=== PATIENT | female | born 1945 | race Caucasian/White ===

== ENCOUNTER 2018-11-15 10:36 | Day surgery (SDC) | payer OTHER, BC ==
[2018-11-14 10:51] VITALS: BMI 30.4
[2018-11-15] MEDS ORDERED: CLINDAMYCIN 900 MG PREMIX IVPB 900 MG/50 ML BAG IVPB ONE (11:29)
[2018-11-15] MEDS ORDERED: BUPIVACAINE HCL/PF 0.5% (5MG/ML) 10 ML VIAL ONE (13:20)
[2018-11-15] MEDS ORDERED: MIDAZOLAM HCL 2 MG/2 ML SINGLE DOSE VIAL ONE (13:22)
[2018-11-15] MEDS ORDERED: PROPOFOL 20 ML ONE (13:22)
[2018-11-15] MEDS ORDERED: SUCCINYLCHOLINE CHLORIDE 200 MG/10 ML VIAL ONE (13:22)
[2018-11-15] MEDS ORDERED: ceFAZolin SODIUM 1 GM VIAL IVPB ONE (13:42)
[2018-11-15] MEDS ORDERED: DEXAMETHASONE SOD PHOSPHATE 4 MG/1 ML VIAL ONE (13:56)
[2018-11-15] MEDS ORDERED: ceFAZolin SODIUM 1 GM VIAL ONE (13:56)
[2018-11-15] MEDS ORDERED: ONDANSETRON 4 MG/2 ML VIAL IVPUSH PRN (14:25)
[2018-11-15] MEDS ORDERED: ACETAMINOPHEN 325 MG TABLET (FP) PO SCH (14:30)
[2018-11-15] MEDS ORDERED: LACTATED RINGERS SOLUTION 1,000 ML IV SCH (14:30)
[2018-11-15] MEDS ORDERED: LIDOCAINE 1%/EPI 1:100000 (20 ML MULTI DOSE VIAL) IJ ONE (15:37)
--- NOTE | 2018-11-15 16:51 | OP ---
Operative Note - Note: Operative Date: 11/15/18 Pre-Operative Diagnosis: Uterine procidentia, pelvic pain, Grade 3 cystocele Operation: Vaginal hysterectomy, resection and repair of enterocele, vaginal vault suspension with McCal/Harmon suspension, anterior colporrhaphy with cystocele repair and jeanette plication. Findings: as dictated Post-Operative Diagnosis: Same as Pre-op Surgeon: German Grande Fishing Worker: Oumou Rizo Anesthesiologist/SALT WASHER: Amanda Esteban Anesthesia: Spinal Specimens Removed: Uterus, cervix, enterocele sac, cystocele sac Estimated Blood Loss (mls): 30 (ml) Drains, Volume Out (mls): 250 (ml clear urine) Fluid Volume Replaced (mls): 1,300 (ml LR) Operative Report Dictated: Yes
[2018-11-15] MEDS ORDERED: HYDROmorphone HCl 2 MG/ML VIAL IVPB PRN (16:52)
[2018-11-15] MEDS ORDERED: SODIUM CHLORIDE 0.9% 500 ML INFUS.BAG IV ONE (16:52)
[2018-11-15] MEDS ORDERED: SODIUM CHLORIDE 0.9% 500 ML INFUS.BAG IV SCH (17:00)
[2018-11-15] MEDS ORDERED: ACETAMINOPHEN INJECTION 100 ML IVPB ONE (17:13)
[2018-11-15] MEDS ORDERED: SODIUM CHLORIDE 1,000 ML IV SCH (17:15)
[2018-11-15] MEDS: ACETAMINOPHEN 1000 MG/100 ML VIAL (NON FORMULARY) IVPB SCH ×2 (18:08→23:10)
[2018-11-15] MEDS: INSULIN SLIDING SCALE (NOVOLOG) 1 VIAL SQ SCH ×2 (18:34→21:46)
[2018-11-15] MEDS: oxyCODONE HCL 5 MG TABLET PO PRN (19:35)
[2018-11-15] MEDS: SIMETHICONE 80 MG TAB.CHEW (FP) PO PRN (21:46)
[2018-11-15] MEDS ORDERED: LOSARTAN POTASSIUM 50 MG TABLET (FP) PO SCH (22:00)
[2018-11-15] MEDS: CEFAZOLIN 2 GM/D5W 2 GM/50 ML ML IVPB SCH (22:07)
[2018-11-16] MEDS: oxyCODONE HCL 5 MG TABLET PO PRN (00:17)
[2018-11-16] MEDS: SIMETHICONE 80 MG TAB.CHEW (FP) PO PRN ×2 (02:57→06:42)
[2018-11-16] MEDS: ACETAMINOPHEN 1000 MG/100 ML VIAL (NON FORMULARY) IVPB SCH ×2 (05:30→11:34)
[2018-11-16] MEDS: CEFAZOLIN 2 GM/D5W 2 GM/50 ML ML IVPB SCH ×2 (06:03→15:01)
[2018-11-16] MEDS: INSULIN SLIDING SCALE (NOVOLOG) 1 VIAL SQ SCH ×2 (06:34→11:33)
[2018-11-16] MEDS ORDERED: metFORMIN HCL 500 MG TABLET (FP) PO ONE (07:00)
[2018-11-16] MEDS ORDERED: GLIMEPIRIDE 1 MG TABLET (FP) PO SCH (07:00)
--- NOTE | 2018-11-16 07:47 | PN ---
Progress Note (short form) - Note Progress Note: Pt seen and examined. States she is doing "okay" this morning. Reports some low back pain overnight due to spinal stenosis and being uncomfortable lying in bed. Tolerated PO without issue (ate full dinner). Has been oob to the chair. Denies cp/sob, n/v/d, calf pain/edema, vaginal bleeding. Vital Signs Temp 98.2 F 11/16/18 06:00 Pulse 75 11/16/18 06:00 Resp 18 11/16/18 06:00 BP 96/50 L 11/16/18 06:00 Pulse Ox 98 11/15/18 21:00 Intake & Output 11/15/18 11/15/18 11/16/18 11:59 23:59 11:59 Intake Total 1900 1500 Output Total 1680 1000 Balance 220 500 Weight 186 lb Intake: IV 1600 1000 Normal Saline - 1,000 ml 1000 @ 100 mls/hr IV ASDIR ROSANA Rx#:[id number] IVPB 200 Oral 300 300 Output: Urine 1150 1000 Gómez 1000 Estimated Blood Loss 30 Other 500 Other: Voiding Method Indwelling Catheter Height 5 ft 5.5 in Body Mass Index (BMI) 30.4 Gen: awake, alert, nad Resp: Unlabored on RA Abdo: soft, nt/nd, hypoactive bowel sounds Groin: gómez removed without issue, packing removed without issue old blood noted on packing, no active bleeding noted, pt tolerated well. A/P: 72 y/o F w/ PMHx HTN, NIDDM, HLD, Uterovaginal prolapse/pelvic pain now POD 1, s/p Vaginal hysterectomy, cystocele repair. Packing/gómez removed without issue. -TOV 7AM, will need bladder scan after second void -Cbc/cmp pending -OOB -Dm diet -Pain control as ordered -Glucose control -Home meds pending AM labs (metformin) d/w attending Dr Lazo Addendum: Labs reviewed and relatively stable h/h and creatinine. Attending updated. Pt voided 300ml in AM (approx 10AM) followed by an additional 200ml at 1pm. Bladder scan at that time was 320ml. Pt voided a 3rd time and post void residual (around 1 pm) was 160ml. Pt had additional voids and a recheck bladder scan approx 3pm was 160sml.
[2018-11-16 08:24] LABS: BASO % 0.3 % (0-2.0); EOS % 0.4 % (0-4.5); HEMOGLOBIN 10.7 GM/dL (10.7-15.3); LYMPH % 12.4 % (8-40); MCH 30.4 pg (25.7-33.7); MCHC 33.5 g/dl (32.0-36.0); MEAN CELL VOLUME 90.7 fl (80-96); MEAN PLT VOLUME 9.2 fl (7.5-11.1); MONO % 6.6 % (3.8-10.2); NEUT % 80.3 % (42.8-82.8); PLATELET COUNT 205 K/MM3 (134-434); RBC 3.53 M/mm3 (3.60-5.2); RDW 13.5 % (11.6-15.6)
[2018-11-16 08:45] LABS: ALBUMIN 3.3 g/dl (3.4-5.0); ALK PHOS 58 U/L (45-117); ANION GAP 6 MMOL/L (8-16); BILIRUBIN,TOTAL 0.3 mg/dL (0.2-1); BLOOD UREA NITROGEN 23 mg/dL (7-18); CALCIUM 8.6 mg/dL (8.5-10.1); CHLORIDE 104 mmol/L (98-107); CO2 26 mmol/L (21-32); CREATININE 1.1 mg/dL (0.55-1.3); GLUCOSE,RANDOM 125 mg/dL (74-106); POTASSIUM 4.5 mmol/L (3.5-5.1); SGOT/AST 13 U/L (15-37); SGPT/ALT 16 U/L (13-61); SODIUM 137 mmol/L (136-145); TOT PROT 6.4 g/dl (6.4-8.2)
--- NOTE | 2018-11-16 09:05 | OP ---
DATE OF OPERATION: 11/15/2018 PREOPERATIVE DIAGNOSES: 1. Pelvic pain. 2. Uterine procidentia. 3. Grade 3 cystocele. POSTOPERATIVE DIAGNOSES: 1. Pelvic pain. 2. Uterine procidentia. 3. Grade 3 cystocele. 4. Massive enterocele. OPERATION: 1. Total vaginal hysterectomy. 2. Resection and repair of enterocele. 3. Vaginal vault suspension with Shay/Harmon suspension. 4. Anterior colporrhaphy with cystocele repair and Kallie plication. SURGEON: German Grande MD ANESTHESIA: Spinal and sedation. ANESTHESIOLOGIST: Amanda Esteban MD ORTHOPAEDIC NURSE: MADISON Pryor PROCEDURE: After excellent spinal anesthesia was introduced, patient was placed in dorsal lithotomy position. Protruding, prolapsed bladder and uterus were noted. Prep and drape was carried out in the routine fashion. Albrecht catheter was introduced into the urinary bladder. Patient was examined and using Luis clamps, gentle traction was applied on the cervix. Mucosa was infiltrated with lidocaine with epinephrine, which was use throughout the case. Circumferential incision was placed on the cervix favoring the posterior aspect. Vaginal mucosa was dissected using blunt and sharp dissection. Posterior cul-de-sac was entered sharply. The uterine cervix was unusually long, which is often the case in cases like that so it was not a surprise, although large enterocele was immediately palpated upon entry to the pouch of Krish; posterior vaginal support was reasonably good. Ureters were identified by palpation. Uterosacral ligaments were then identified, shortened significantly, and bilaterally clamped using Marnie clamps and divided. Vicryl 1 sutures were placed and put on hold. Uterus was then flipped in Doderline fashion and under direct palpation anterior cul-de-sac was entered sharply. Uterus was returned to normal position. Parametrial tissue with cardinal ligaments, uterine artery plexi, uteroovarian ligaments, tubes, and round ligaments were then divided by advancing the clamping, dividing, and suture ligating routine. The uterus was removed completely and sent for pathology as specimen number 1. Adnexa were palpated and visualized with difficulty. They were both completely normal and atrophic. Massive enterocele was noted. Most of it was then excised in the rounded triangular fashion and specimen was sent for pathology. Anatomy was identified. Using Vicryl 1 external Shay suture was then placed and then reinforced with lateral sutures, achieving excellent suspension of the posterior aspect of the vagina. Modified Harmon/Shay technique was applied. Hemostasis was excellent. Bladder mucosa was then incised anteriorly in a vertical fashion and large cystocele was dissected off of the mucosa. Posterior ureterovesical angle was identified and it was nearly normal. The area was reinforced with 2 Kallie sutures. Cystocele was then reduced with interrupted Vicryl 0 sutures using relatively well-developed pubocervical fascia. Excess of vaginal mucosa was then excised and sent as specimen number 3. Anterior vaginal mucosa as then closed with continuous running chromic 2-0 suture, interlocking every 2nd bite. Additional mattress sutures were then used to close the vaginal vault completely and to achieve suspension. As this was completed, surgery was finished. Sterile packing with small amount of betadine was then placed in the vagina. Urine was noted to be clear and ample in the Albrecht bag. Estimated blood loss was 25 to 30 mL. Patient withstood the procedure very well. She had no anesthesia or surgical complications. In stable condition, comfortable and stable, patient was transferred to PACU. MD TULIO FOSTER/[id number] MTDD
[2018-11-16] MEDS ORDERED: FLU VACCINE QUAD 60 MCG/0.5 ML (MDV 18-19) IM ONE (10:00)
[2018-11-16] MEDS ORDERED: LOSARTAN POTASSIUM 50 MG TABLET (FP) PO SCH (10:00)
[2018-11-16] MEDS ORDERED: DOCUSATE SODIUM 100 MG CAPSULE (FP) PO SCH (10:00)
[2018-11-16] MEDS ORDERED: PATIENT'S OWN MEDICATION (NON-FORMULARY) (Lovastatin [Lovastatin] 10 MG) PO SCH (10:00)
[2018-11-16] MEDS ORDERED: HEPARIN NA (PORCINE) 5,000 UNITS/ML 1ML VIAL SQ ONE (10:00)
--- NOTE | 2018-11-16 14:45 | PN ---
Progress Note (short form) - Note Progress Note: Post op day#1.S/P Vaginal hysterectomy under spinal anesthesia uneventful.Patient stable.No any anesthesia related problem.Patient DC from the anesthesia care.
[2018-11-16] MEDS ORDERED: metFORMIN HCL 500 MG TABLET (FP) PO SCH (16:30)
[2018-11-16 16:45] VITALS: BP 115/82; PULSE 82; TEMP 98.3
--- NOTE | 2018-11-19 07:39 | SURG ---
Surgery Nremt Note Nremt: Oumou Rizo PA-C (Suzy) Date of Service: 11/15/18 Diagnosis: Uterine procidentia, pelvic pain, Grade 3 cystocele Procedure: Vaginal hysterectomy, resection and repair of enterocele, vaginal vault suspension with McCal/Harmon suspension, anterior I was present for the entirety of the operative procedure. For further detail, please refer to operative report. Visit type - Case Type Case Type: Scheduled - Emergency Emergency Visit: No - New patient This patient is new to me today: Yes Date on this admission: 11/19/18 - Critical Care Critical Care patient: No
--- NOTE | 2018-11-21 12:05 | PATH ---
Surgical Pathology Report Patient Name: YESSICA JAIEMS [facility]. Rec. #: [id number] /Age/Gender: 1945 (Age: 72) / F Account: [id number] Location: AMBULATORY SURG Taken: 11/15/2018 Received: 11/16/2018 Reported: 11/21/2018 Physicians: German Grande MD Specimen(s) Received A: UTERUS B: ENTEROCELE SAC C: CYSTOCELE Clinical History Uterovaginal prolapse and pelvic pain Final Diagnosis A. UTERUS, HYSTERECTOMY: ONE LEIOMYOMA. WEAKLY PROLIFERATIVE/ATROPHIC ENDOMETRIUM. CERVIX SHOWS SQUAMOUS METAPLASIA, CHRONIC INFLAMMATION, AND FIBROSIS IN THE SUBMUCOSAL STROMA. B. ENTEROCELE SAC, EXCISION: SQUAMOUS MUCOSA WITH ACANTHOSIS, PARAKERATOSIS, MODERATE CHRONIC AND MILD ACUTE INFLAMMATION. C. CYSTOCELE, EXCISION: SQUAMOUS MUCOSA WITH ACANTHOSIS, PARAKERATOSIS, MODERATE CHRONIC AND MILD ACUTE INFLAMMATION. Electronically Signed Sedrick Beasley M.D. Gross Description A. Received in formalin labeled "uterus," is a 66 g uterus with an attached cervix and no attached adnexa. The specimen measures 9.5 cm from superior to inferior, 4.5 cm from left to right and 2.8 cm from anterior to posterior. The attached cervix measures 4.8 cm in length and averages 2.6 cm in diameter. The ectocervix is tidwell, smooth and glistening. The endocervix is unremarkable. The endometrial cavity measures 3.5 cm in length and 1.3 cm from cornu to cornu. The endometrium is tidwell and averages 0.1 cm in thickness. The myometrium displays a 1.3 cm in greatest dimension intramural nodule. The cut surface of the nodule is tidwell and rubbery with whorled architecture. No areas of hemorrhage or necrosis are identified. The myometrium is tidwell argueta and measures up to 1.4 cm in thickness. Snowboarder sections are submitted in 7 cassettes as follows: 1-anterior cervix; 2-posterior cervix; 2-5-ydeernak endomyometrium; 1-7-wcaszspno endomyometrium; 7-intramural nodule. B. Received in formalin labeled "enterocele sac," is a 3.3 x 2.3 x 1.0 cm tidwell portion of mucosal tissue with underlying soft tissue. Snowboarder sections are submitted in one cassette. C. Received in formalin labeled "cystocele," is a 12.4 x 2.0 cm tidwell, irregular portion of mucosal tissue with underlying soft tissue. Snowboarder sections are submitted in one cassette. 11/19/2018 [facility]11/19/2018
== END 2018-11-16 16:35 | disposition home or self-care (01) ==
LOC: JASUSAT 10:36 → EDSTATUS 13:00 → J3W 18:23 → JASUSAT 11-16 16:35
PROVIDERS: ATTEND Specialist
PROC: 0UT97ZZ Resection of Uterus, Via Natural or Artificial Opening (ICD-10-PCS; 2018-11-15)
PROC: 0USG7ZZ Reposition Vagina, Via Natural or Artificial Opening (ICD-10-PCS; 2018-11-15)
PROC: 0JQC0ZZ Repair Pelvic Region Subcutaneous Tissue and Fascia, Open Approach (ICD-10-PCS; principal; 2018-11-15 13:00)
DX: N81.3 Complete uterovaginal prolapse (principal); I10 Essential (primary) hypertension; E11.9 Type 2 diabetes mellitus without complications; Z79.84 Long term (current) use of oral hypoglycemic drugs
CPT/HCPCS: 36415; 80053; 82962; 85025; 86850; 86900; 86901; 88304-TC; 88305-TC; 90686; 94760; G0008; J0131; J1644